=== PATIENT | male | born 2005 | race Caucasian/White ===

== ENCOUNTER 2025-05-03 18:55 | Emergency (ER) | payer BC ==
[~2025-05-03] VITALS: Ht 165.1 cm; Wt 55.0 kg
[2025-05-03 18:59] VITALS: BP 119/67; PULSE 91; RESP 18; O2SAT 100
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
--- NOTE | 2025-05-03 19:53 | RADIOLOGY REPORT ---
CLINICAL INDICATION: ANKLE PAIN LEFT TECHNIQUE: DI ANKLE, COMPLETE(3VW MIN) Comparison: None FINDINGS/IMPRESSION: : There is no evidence of acute fracture or dislocation. Moderate soft tissue swelling overlying the lateral malleolus.
[2025-05-03 20:28] VITALS: TEMP 99.6
== END 2025-05-03 20:30 | disposition home or self-care (01) ==
LOC: ER 18:56
DX: S93.402A Sprain of unspecified ligament of left ankle, initial encounter (principal); Z88.0 Allergy status to penicillin; X58.XXXA Exposure to other specified factors, initial encounter; Y93.89 Activity, other specified; Y92.89 Other specified places as the place of occurrence of the external cause; Y99.8 Other external cause status
CPT/HCPCS: 29515; 73610; 99283; L1930; 29125